=== PATIENT | male | born 1985 | race Caucasian/White ===

== ENCOUNTER → 2023-05-26 | Outpatient (CLI) | payer SELFPAY | LOC: M PLALAB 14:04 | PROVIDERS: ATTEND Psychiatry & Neurology Psychiatry | DX: F14.90 Cocaine use, unspecified, uncomplicated (principal) ==

== ENCOUNTER → 2023-05-26 | Outpatient (CLI) | payer SELFPAY | LOC: M OUTALCOH 08:50 | PROVIDERS: ATTEND Psychiatry & Neurology Psychiatry | DX: F10.10 Alcohol abuse, uncomplicated (principal) ==